=== PATIENT | female | born 1995 | race Caucasian/White ===

== ENCOUNTER 2023-05-19 16:40 | Outpatient (CLI) | payer BC, SELFPAY ==
--- NOTE | 2023-05-19 17:00 | CRLHL7_ITS ---
For Patients: As a result of the Cures Act, medical imaging exams and procedure reports are released immediately into your electronic medical record. You may view this report before your referring provider. If you have questions, please contact your health care provider. INDICATION: First trimester scan, establish dates. COMPARISON: None. TECHNIQUE: Real-time herring-scale imaging of the pelvis was performed. FINDINGS: Sonographic imaging demonstrates a single living intrauterine gestation. The embryo demonstrates a regular cardiac rate measuring 176 beats per minute. The embryo`s crown-rump length measurement of 2.0 cm corresponds to a gestational age of 8 weeks 4 days with a sonographic due date of 12/25/2023. There is a normal-appearing yolk sac. There are no gross abnormalities noted within the embryo at this early state of development. The gestational sac has a normal appearance. There is no evidence of a perigestational hemorrhage. The amount of fluid within the sac appears appropriate for gestational age. The cervix is closed. The myometrium appears normal. The ovaries are of normal size. Corpus luteal cyst right ovary. Trace pelvic free fluid. IMPRESSION: Normal first trimester OB ultrasound exam. Gestational age calculated at 8 weeks 4 days with a sonographic due date of 12/25/2023. Dictated by Esteban Leiva MD @ 05/22/2023 5:56:11 AM (Electronically Signed)
== END 2023-05-19 16:41 | disposition home or self-care (01) ==
LOC: US 16:41
PROVIDERS: Visit Provider Physician Assistant
DX: Z34.91 Encounter for supervision of normal pregnancy, unspecified, first trimester (principal); Z3A.08 8 weeks gestation of pregnancy
CPT/HCPCS: 76817; 86592; 86703; 86704; 86706; 86762; 86787; 86803; 86850; 86900; 86901; 87086; 87340; 87491; 87591

== ENCOUNTER 2023-08-07 12:35 | Outpatient (CLI) | payer BC, SELFPAY ==
--- NOTE | 2023-08-07 13:00 | CRLHL7_ITS ---
For Patients: As a result of the Century Cures Act, medical imaging exams and procedure reports are released immediately into your electronic medical record. You may view this report before your referring provider. If you have questions, please contact your health care provider. INDICATION: Evaluate anatomy. COMPARISON: May 19, 2023 TECHNIQUE: Real time herring scale imaging of the fetus was performed. FINDINGS: Sonographic imaging demonstrates a single living intrauterine gestation. Fetus demonstrates a regular cardiac rate of 141 beats per minute. Fetus has a vertex orientation and longitudinal lie. The placenta lies posteriorly without evidence of placenta previa. Amniotic fluid volume appears normal. Single deepest vertical pocket: 3.1 cm. The cervix is closed and measures 4.2 cm in length. The composite ultrasound gestational age is calculated at 20 weeks 0 days with an estimated sonographic due date of December 25, 2023. The estimated weight is 316 grams which lies at the 44th percentile. The following biometric measurements were obtained: Biparietal diameter: 4.5 cm/19 weeks 5 days 44% Head circumference: 17.7 cm/20 weeks 1 day 57% Abdominal circumference: 14.7 cm/20 weeks 0 days 50% Femur length: 3.1 cm/19 weeks 4 days 32% The HC/AC ratio measures: 1.2 range (1.08-1.25) On anatomic survey, there is a normal appearance of the cerebral ventricles, cisterna magna and cerebellum. The nose, lips, and facial profile appear normal. The cervical, thoracic and lumbar spine are well visualized and appear normal. There is a normal four-chamber heart view and the left and right ventricular outflow tracts appear normal. diaphragm, stomach, kidneys and bladder appear normal. Please note however there appears to be a 5 mm cyst arising from the posterior right kidney and a 7 mm cyst arising from the medial left kidney. These are not convincingly part of the renal pelvis. If these are truly simple renal cysts, typically they resolved during the course of . Consider a short interval follow-up ultrasound with attention directed the kidneys within 4-6 weeks. There is a normal three-vessel cord and cord insertion site. The four extremities appear normal. IMPRESSION: Normal OB ultrasound exam with concordance of clinical and sonographic dating. No intrinsic abnormalities noted on anatomic survey. Please note however there appear to be bilateral renal cysts, 5 millimeters on the right and 7 millimeters on the left. Typically these resolved during the course of the . Consider follow-up ultrasound of the kidneys in 4-6 weeks. Dictated by Romaine Fairbanks MD @ 08/10/2023 9:58:35 AM (Electronically Signed)
== END 2023-08-07 12:36 | disposition home or self-care (01) ==
LOC: US 12:36
PROVIDERS: Visit Provider Obstetrics & Gynecology
DX: Z34.92 Encounter for supervision of normal pregnancy, unspecified, second trimester (principal); Z3A.19 19 weeks gestation of pregnancy
CPT/HCPCS: 76805

== ENCOUNTER 2023-10-02 13:10 | Outpatient (CLI) | payer BC, SELFPAY | END 2023-10-02 13:11 | disposition home or self-care (01) | LOC: NFLDREF 10-05 05:45 | PROVIDERS: Visit Provider Obstetrics & Gynecology | DX: Z34.93 Encounter for supervision of normal pregnancy, unspecified, third trimester (principal) | CPT/HCPCS: 86592 ==

== ENCOUNTER 2023-12-02 14:14 | Outpatient (CLI) | payer BC, SELFPAY ==
[2023-12-03 15:15] LABS: Strep B DNA Probe POSITIVE (Negative)
[2023-12-03 18:02] LABS: Strep B Susceptibility Needed? No
== END 2023-12-02 14:15 | disposition home or self-care (01) ==
LOC: NFLDREF 14:16
PROVIDERS: PCP Advanced Practice Midwife; Visit Provider Advanced Practice Midwife
DX: Z34.03 Encounter for supervision of normal first pregnancy, third trimester (principal)
CPT/HCPCS: 87081; 87653

== ENCOUNTER 2023-12-19 09:01 | Inpatient (IN) | payer BC, SELFPAY ==
[2023-12-19] VITALS (95 sets, daily range): BP systolic 83–129; BP diastolic 43–83; PULSE 56–109; RESP 16–18; TEMP 36.7–37.1; O2SAT 86–100; BMI 29.5
[2023-12-19] MEDS: LACTATED RINGERS 1000 ML 1,000 ML 1200 ML IV ×3 (09:12→16:12)
[2023-12-19 09:21] LABS: Basophils Percent Auto 0.2 % (0.0-3.0); Eosinophils Percent Auto 0.3 % (0.0-7.0); Hematocrit 39.1 % (33.0-51.0); Hemoglobin* 13.3 gm/dL (12.0-16.0); Immature Granulocytes Pct Auto 0.3 %; Lymphocytes Percent Auto 7.8 % (20-44); Mean Corpuscular HGB Conc 34 gm/dL (32-36); Mean Corpuscular Hemoglobin 31 pg (26-34); Mean Corpuscular Volume 92 fL (80-100); Monocytes Percent Auto 3.8 % (0.0-11.0); Neutrophils Percent Auto 87.6 % (42.0-72.0); Platelet Count* 198 K/uL (140-440); RDW Coefficient of Variation % 13.1 % (11.5-15.5); Red Blood Count 4.25 m/uL (4.00-5.20); White Blood Count* 11.88 K/uL (4.50-11.00)
[2023-12-19 09:23] LABS: Slide Review Reflex No
[2023-12-19] MEDS: AMPICILLIN 2 GM in 0.9 % SODIUM CHLORIDE Mini-bag 100 ML IVPB (09:30)
--- NOTE | 2023-12-19 09:46 | P.OBHP_ITS ---
OB - H&P: HPI Labor/Induction History of Present Illness Time Seen by Provider: 09:00 Date Seen: 12/19/23 Chief Complaint: The patient is a 28 year old gravida1 para 0 at 39.0 weeks gestation by LMP, who presents with contractions and blood show. Her whole H&P was dictated by Dr. Benoit on 12/18/23. Active movement. Denies LOF or abnormal vaginal discharge. Ctx 3-5 minutes. Small amount of vaginal bleeding from cervical change. Patient presented to triage for labor rule out due to ongoing contractions. She went from 4 cm to 6 cm and will be admitted for spontaneous labor. Chief complaint: Maternity Narrative: Cass Arambula is a 28 year old female Specific Issues/Plans 1. Migraines 2. History of frequent UTIs 3. ?Report of transient black stools - recommend fecal occult blood test to rule out melena if recurs, patient to call into clinic to coordinate this if present 4. Bilateral renal cysts noted on anatomy US --> Left Multicystic Kidney Disease - NIPT low risk - s/p MFM referral. Recommend serial growth US with reassessment of kidneys at each US - ongoing at [facility]. - Growth 09/21: EFW 972g, 56%ile. SDP 6.2cm. - Growth 10/25: EFW 1784g, 46%ile. SDP 5.4cm. Stable left multicystic dysplastic kidney, unremarkable right kidney. - Growth 11/26: EFW 2941g, 66%ile. AC 86%ile. SDP 6.5cm. Stable L MCDK, normal R. [x] s/p nephrology consult - repeat assessment via US at 4-6 weeks of life 5. Covid Positive in 21.3 wks (08/16/23) 6. GBS positive. Needs antibiotics in labor. Flu shot: Declined COVID shot: Declined Tdap: 10/16/23 Meds Home Medications and Allergies Home Medications ?Medication ?Instructions ?Recorded ?Confirmed ?Type skin cleanser,general (Cetaphil 1 applic topical BID 05/19/23 12/19/23 History topical cleanser) vitamin#30 30 mg iron-10 1 cap PO DAILY 06/15/23 12/19/23 History mg iron-folic acid 1 mg-omg3 capsule Allergies Allergy/AdvReac Type Severity Reaction Status Date / Time No Known Drug Allergies Allergy Verified 12/18/23 11:36 OB - H&P: Exam Physical Exam: Vital signs: Temp Pulse Resp BP Pulse Ox 98.7 F 75 18 129/82 98 12/19/23 09:24 12/19/23 09:15 12/19/23 09:24 12/19/23 09:15 12/19/23 05:31 Narrative: Physical exam: General: No acute distress Psych: Alert and oriented x3, full affect HEENT: Normocephalic, atraumatic Lungs: Unlabored breathing Neuro: No focal deficit. Mentating appropriately Pelvic exam: /-1 per RN check OB - Results Labs Labs: Short CBC 12/19/23 Range/Units 09:12 WBC 11.88 H (4.50-11.00) K/uL Hgb 13.3 (12.0-16.0) gm/dL Hct 39.1 (33.0-51.0) % Plt Count 198 (140-440) K/uL OB - Problem Based A/P Additional Plan (1) renal anomaly, single gestation: Status: Acute Plan: - s/p nephrology consult - repeat assessment via US at 4-6 weeks of life (2) Spontaneous onset of labor: Status: Acute Plan: - Patient requesting epidural - Expectant management for now
[2023-12-19] MEDS: ROPIVACAINE 0.2% 100 ml 100 ML 10 MG EPIDURAL (10:35)
[2023-12-19] MEDS: LIDOCAINE 2% (PF) 5 ML VIAL EPIDURAL (10:35)
--- NOTE | 2023-12-19 10:41 | P.ANBPRC_ITS ---
[facility] Surgical History History of wisdom tooth extraction ?K08.409 - Partial loss of teeth, unspecified cause, unspecified class (ICD- 10) History of tonsillectomy and adenoidectomy ?Z90.89 - Acquired absence of other organs (ICD-10) Family History Maternal Grandfather Coronary artery disease Social History Narrative: History of blood transfusion: No. SOCIAL HISTORY: Occupation: Teacher. Marital status: . Oriental Orthodox/cultural needs: no. Chemical or radiation exposure: no. Pre- tobacco use: no. Pre- alcohol use: no. Current tobacco use: no. Current alcohol use: Occasionally on holidays. Recreational drug use: no. Dietary restrictions: no. Blood transfusion acceptable in an emergency: yes. PSYCHOSOCIAL HISTORY: History of depression or currently depressed: no. Current or past physical, emotional, or sexual mistreatment: no. Problems that will make it hard to make it to appointments: no. What is your current living situation?: I presently have a place to live Problems where you live: no known problems In the past 12 months, utilities in danger of being shut off: no In past 12 months, lack of transportation kept you from medical appts, meetings, work, or getting things needed for daily living: no In the past 12 mos, have been you worried that your food would run out before you had money to buy more?: never true In the past 12 mos, the food you bought just didn't last and you didn't have money to buy more?: never true Smoking Status: Never smoker How often does anyone, including family, friends and others, physically hurt you : never How often does anyone, including family, friends and others, insult or talk down to you: never How often does anyone, including family, friends and others, threaten you with harm: never How often does anyone, including family, friends and others, scream or curse at you: never Little interest or pleasure in doing things: not at all Feeling down, depressed, or hopeless: not at all Meds Home Medications and Allergies Home Medications ?Medication ?Instructions ?Recorded ?Confirmed ?Type skin cleanser,general (Cetaphil 1 applic topical BID 05/19/23 12/19/23 History topical cleanser) vitamin#30 30 mg iron-10 1 cap PO DAILY 06/15/23 12/19/23 History mg iron-folic acid 1 mg-omg3 capsule Allergies Allergy/AdvReac Type Severity Reaction Status Date / Time No Known Drug Allergies Allergy Verified 12/18/23 11:36 Results Labs Labs: Laboratory Results - last 24 hr 12/19/23 09:12 WBC 11.88 H RBC 4.25 Hgb 13.3 Hct 39.1 MCV 92 MCH 31 MCHC 34 RDW Coeff of Abril 13.1 Plt Count 198 Neut % (Auto) 87.6 H Lymph % (Auto) 7.8 L Pershing % (Auto) 3.8 Eos % (Auto) 0.3 Baso % (Auto) 0.2 Neut # (Auto) 10.40 H Lymph # (Auto) 0.90 Pershing # (Auto) 0.50 Eos # (Auto) 0.00 Baso # (Auto) 0.00 Abs Immat Gran (auto) 0.00 Imm/Tot Granulo (auto) 0.3 Blood Type A Positive Antibody Screen NEGATIVE Vital Signs Vital Signs: Last Vital Signs Temp 98.7 F 12/19/23 10:39 Pulse 93 12/19/23 10:39 Resp 16 12/19/23 10:39 BP 107/60 12/19/23 10:39 Pulse Ox 98 12/19/23 10:40 Weight: 70.76 kg Height: 154.94 cm Anesthesia Procedures Epidural Insertion Patient Location: OB Start Time: 10:10 Stop Time: 10:50 Start Date: 12/19/23 Stop Date: 12/19/23 Reason for Block: primary anesthetic Patient Position: sitting Performed By: Kaushik Spencer Preanesthetic Checklist: IV checked, risks and benefits discussed, surgical consent, monitors and equipment checked, pre-op evaluation, timeout performed and anesthesia consent Prep: chlorhexidine gluconate Monitoring: blood pressure monitoring, monitoring and evaluation advisor, continuous pulse oximetry and heart rate Approach: midline Vertebral Space: lumbar (1-5) Needle Type: Tuohy needle Injection Technique: continuous catheter (catheter) Needle gauge: 17 Needle Length (cm): 10 cm Needle Insertion Depth (cm): 5 Catheter Gauge: 19 Catheter Type: multi-orifice Catheter at skin depth (cm): 10 Test Dose Result: negative and lidocaine 1.5% with epinephrine 1 to 200,000
[2023-12-19] MEDS: AMPICILLIN 1 GM in 0.9 % SODIUM CHLORIDE Mini-bag 100 ML IVPB (14:00)
--- NOTE | 2023-12-19 14:02 | PM.OBPNL ---
Subjective Time Seen by Provider: 12:30 Date Seen: 12/19/23 Objective Vital Signs: Last Vital Signs Temp 98.2 F 12/19/23 12:22 Pulse 75 12/19/23 13:58 Resp 16 12/19/23 12:22 BP 93/52 L 12/19/23 13:58 Pulse Ox 98 12/19/23 11:30 Pelvic Exam Dilation (cm): 6.5 Effacement (%): 80 Station: -1 Comments: Increased blood show, mucous mixed with some blood. No brisk bleeding. Appropriate for AROM. AROM at 1230, clear fluid. No complication. Patient tolerated the procedure well. Contractions Monitor mode: External Contraction Frequency: Q5 Contraction pattern: Irregular Contraction intensity: Moderate Plan Plan: - Will start pitocin if no change after AROM or decrease frequency in contractions.
[2023-12-19] MEDS: OXYTOCIN 30 unit/500 ML in NS 30 UNIT/500 ML BAG IVPB (14:16)
[2023-12-19 16:10] LABS: INR 0.87 (0.91-1.10); Partial Thromboplastin Time* 24 Seconds (23-33); Prothrombin Time 12.4 Seconds
[2023-12-19 16:11] LABS: Fibrinogen* 488 mg/dL (200-450)
--- NOTE | 2023-12-19 16:23 | P.OBPN_ITS ---
Subjective Time Seen by Provider: 16:23 Date Seen: 12/19/23 Narrative: Informed by RN that she is having more bleeding and worsening deceleration. I presented to bedside for assessment. Patient is having more dark red blood mixed with cervical mucous, appears distinct from amniotic fluid which is a clear yellow that slowly leaks during contraction. Cervical exam notable for what palpable like a cervical polyp right side. It's contiguous with the cervical tissue and distinct from skull. Increased bleeding noted on fingers with palpation of the polyp. Fetus with good scalp stimulation. Cervical exam was unchanged. Internals placed without issues. Discussed concern for arrest of dilation. Will continue to titrate Pitocin given that fetus has good scalp stim and moderate variability. Decelerations have improved with repositioning and IV bolus. Bleeding is not bright red or brisk, continues to be mucous mixed. BSUS showed fetus well engaged in the pelvis without concern for near by umbilical cord. Placenta looks intact. Hgb/plt today: 13.3/198 Coags pending Patient understands that I will recommend a delivery if no cervical change in 1-2 hours, worsening deceleration or worsening bleeding. All questions answered. Will close monitor. Objective Vital Signs: Last Vital Signs Temp 98.1 F 12/19/23 15:12 Pulse 71 12/19/23 16:09 Resp 16 12/19/23 15:12 BP 87/51 L 12/19/23 16:09 Pulse Ox 98 12/19/23 11:30 Pelvic Exam Dilation (cm): 6.5 Effacement (%): 80 Station: -1 Contractions Monitor mode: Internal Contraction Frequency: Q3-4 minutes Contraction pattern: Irregular Contraction intensity: Moderate Pitocin Rate (mU/min): 3 Assessment Status: Category ll Heart Rate Baseline: 140 Fingernail Sculptor Variability: Moderate (6-25) Monitor Accelerations: Present Monitor Decelerations: Variable
[2023-12-19] MEDS: AZITHROMYCIN 500 MG in 0.9 % SODIUM CHLORIDE 250 ml 250 ML 255 MG IVPB (17:25)
--- NOTE | 2023-12-19 17:33 | PM.OBPNL ---
Subjective Time Seen by Provider: 17:33 Date Seen: 12/19/23 Narrative: Patient unchanged on cervical exam. She continues to have variables that resolves after contractions. Moderate variability with accelerations in between contractions. Vaginal bleeding is stable. We discussed delivery for arrest of dilation in the active phase. CS Consent The patient was consented for section and blood. She understands that the four main categories of risk include pain, bleeding, infection, and damage to surrounding structures. Pain will be managed with her epidural during surgery. TAP block and PO pain medication will be utilized . Regarding infection, she understands that we will be delivering appropriate antibiotics, however that the risk of infection following section still is approximately 5%. She understands that though the risk is very low that there is always a risk of damage to the bladder, uterus, ovaries, fallopian tubes, bowels, ureters, or even the fetus. She understands that most injuries can be addressed at the time of surgery, however, such an injury may require additional surgeries to fix. She has never had any abdominal surgeries. Lastly, she understands that a section carries a risk of bleeding, and that while this bleeding can be addressed with multiple medical and surgical modalities (including hysterectomy), that there is the possibility of needing a blood transfusion. She reports she would accept a blood transfusion understanding the risks of a 1/200,000 risk of Hepatitis and 1/2,000,000 risk of HIV as well as the risk of having an allergic reaction to the blood products. She further understands that this reaction is typically mild, however can be severe including respiratory distress and necessitating ICU-level care. Lastly, she understands that a section does increase risks for future pregnancies and deliveries including, but not limited to, the risk of uterine rupture or placenta accreta. They plan to have 2 children at most. We discussed post operative recovery course. Objective Vital Signs: Last Vital Signs Temp 98.7 F 12/19/23 17:02 Pulse 92 12/19/23 17: Resp 16 12/19/23 17:02 BP 101/52 L 12/19/23 17:24 Pulse Ox 98 12/19/23 11:30 Pelvic Exam Dilation (cm): 6.5 Effacement (%): 80 Station: -1 Contractions Monitor mode: Internal Contraction pattern: Irregular Contraction intensity: Moderate Pitocin Rate (mU/min): 3 Assessment Status: Category ll Heart Rate Baseline: 140 Monitor Accelerations: Present Monitor Decelerations: Variable Plan Plan: - Hgb/plt: 13.3/198 - INR 0.87 (L) - APTT 24 - Fibrinogen 488 - Plan: Will proceed with primary delivery due to arrest of dilation in the active phase. OR team notified.
[2023-12-19] MEDS: CEFAZOLIN 2 GM INJ IVP (18:10)
[2023-12-19] MEDS: TRANEXAMIC ACID 100 MG/ML INJ 1000 MG IV (18:40)
[2023-12-19] MEDS: LACTATED RINGERS 1000 ML 1,000 ML 125 ML IV (18:44)
--- NOTE | 2023-12-19 19:27 | P.OBPRC_ITS ---
Procedure Time Seen by Provider: 19:28 Date of procedure: 12/19/23 Will [facility] bill your pro fee for this procedure?: Yes Procedure Description: DELIVERY BY SECTION Date of Service: 12/19/23 Delivery time: 1823 Summary: Admitted for spontaneous labor at 39.0 weeks, Primary Lower uterine transverse section, Pfannenstiel, Closed with sutures, QBL 447 cc, No complications, Findings: Normal uterus, bilateral ovaries. Normal left fallopian tube. Right fallopian tube with a small 1cm paratubal cyst. 8/9 Weight: 7lb 6oz Primary Indication: 1. Arrest of dilation in the active phase 2. Category II tracing with recurrent variables Procedures: Primary Lower uterine transverse section Specimens Removed: Placenta Surgeon: Swapna Shine MD Anesthesia: Epidural and TAP block Report: Prophylactic antibiotic, 2 g of Ancef and 500 mg of Azithromycin as given before patient was taken to OR. After arrival to the operating room patient was placed in the supine position with left lateral tilt after bolus of epidural anesthesia. Laparotomy A pfannenstiel incision was made through the anterior abdominal wall with #10 scalpel approximately 2 cm above the pubic symphysis. The incision was extended sharply with the #10 scalpel through the subcutaneous tissue to the level of fascia. The fascia was entered sharply with a #10 scalpel (Pfannenstiel) in the midline and extended in semi-elliptical fashion with digits. The rectus muscles were in the midline bluntly with digits. The peritoneum was then entered bluntly. The peritoneal incision was then extended superiorly and inferiorly under direct visualization with care being taken to avoid bladder and bowel. No adhesions were noted. The peritoneal incision was enlarged bluntly by lateral traction from the surgeon's and hair assistant's hand. Clifford retractor was inserted into the abdomen. Delivery A bladder flap was not made as bladder was low off the lower uterine segment. A low transverse hysterotomy was made then with #10 scalpel and extended laterally and cephalad with fingers in a low transverse fashion with Manu Hurd technique with care being taken to avoid injury to the fetus. The amniotic cavity (membrane) was then entered with spontaneous rupture of membrane, and the amniotic fluid was noted to be clear, fetus was delivered cephalic. With delivery of the baby, no extension was noted. Placenta was delivered spontaneously with steady traction on cord and manual separation of placenta from uterine wall. Closure Uterine cavity was cleaned after placental delivery with lap sponge x 3. The hysterotomy was closed in two layers with stitches using 0 vicryl with continuous locking stitches and 0 monocryl in a continuous non locking manner. Hemostasis was achieved with two additional figure of 8, one at midline and one at left uterine angle and as needed with electrocautery. 2 cm nondemanding hematoma noted on lower uterine segment at left uterine angle. The ovaries/tubes/uterine surface were evaluated. They were found to be normal. Clifford retractor removed and hemostasis was confirmed again. Fascia was closed with running stitches using 0 vicryl. Subcutaneous layer was irrigated. Hemostasis was checked for and found to be adequate. A small figure of 8 was placed in the subcutaneous tissue at midline due to a bleeding vessel. The subcutaneous layer was closed with running 2-0 chromic sutures. The skin was closed with 4-0 vicryl subcuticular sutures . The incision was cleaned, exofin applied and mepilex dressing placed. The procedure was considered terminate at this time. Intraoperative Complications: None QBL: 447 cc Uterotonics: 40u of pitocin and 1g of TXA Disposition: The patient tolerated the procedure well. She was recovered in Obstetric PACU for close monitoring in stable condition, with a contracted uterus and normal transvaginal bleeding. The infant was sent to mother?s bedside/PACU. The placenta was sent to pathology for nonreassuring heart tracing and unscheduled delivery. Debrief with OR team performed and specimen reviewed at the conclusion of the procedure.
--- NOTE | 2023-12-19 19:42 | P.NB_ITS ---
Nerve Block Nerve Block Time Seen by Provider: 19:25 Date Seen: 12/19/23 Type of block requested by surgeon for post-operative analgesia: TAP Side: bilateral Time out performed: Yes Verification of patient name: Yes Verification of date of : Yes Site marking: site marked Name of person performing procedure: Robert Lugo Continuous monitoring Was continuous monitoring of O2 sat, B/P, registered nurse cardiac, recorded every 15 minutes?: Yes Procedure Checklist: sterile prep, needles and gloves Ultrasound guided. Images saved: Yes Medications given in 5ml increments after negative aspiration: Marcaine %: 0.25 mL: 30 Needle gauge: 20 and Exparel mL: 10 Needle gauge: 20 Patient tolerated procedure well: Yes Additional comments: Injected in 5ml increments after negative aspiration Block Charges Block Charge (with Pro Fee): TAP Bilateral Use of Ultrasound Machine for Block: Yes- US Guidance/pain block
--- NOTE | 2023-12-19 19:42 | W.ANESCHARGE ---
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
[2023-12-19] MEDS: KETOROLAC 30 MG/ML inj IVP (20:42)
[2023-12-20] VITALS (22 sets, daily range): BP systolic 105–112; BP diastolic 64–72; PULSE 62–79; RESP 16–20; TEMP 36.6–36.8; O2SAT 96–97
[2023-12-20] MEDS: LACTATED RINGERS 1000 ML 1,000 ML 125 ML IV (00:16)
[2023-12-20] MEDS: KETOROLAC 30 MG/ML inj IVP (03:04)
[2023-12-20 07:09] LABS: Hemoglobin* 10.1 gm/dL (12.0-16.0)
[2023-12-20] MEDS: IBUPROFEN 600 MG TABLET PO ×3 (08:44→21:56)
[2023-12-20] MEDS: DOCUSATE SODIUM 100 MG CAPSULE PO (08:44)
--- NOTE | 2023-12-20 11:33 | PM.OBPNVD1 ---
OB - PN:Subj Subjective Time Seen by Provider: 11:34 Date Seen: 12/20/23 Narrative: Overnight patient had no complaints. Her pain is well controlled on oral pain medications - soreness at incision site. She is tolerating a regular diet. She has passed flatus. She is ambulating without difficulty. Lochia is scant. She is urinating without gonsales. Patient denies chest pain, SOB, n/v, headache, RUQ pain, vision changes, dizziness. OB - PN: Obj Exam Physical Exam: Vital signs: Temp Pulse Resp BP Pulse Ox O2 Del Method 98 F 78 16 112/72 96 Room Air 12/20/23 08:18 12/20/23 08:18 12/20/23 08:36 12/20/23 08:18 12/20/23 08:18 12/19/23 20:08 Narrative: Physical exam: General: No acute distress Psych: Alert and oriented x4, full affect HEENT: Normocephalic, atraumatic Neck: No cervical adenopathy, no thyromegaly Heart: Regular rate and rhythm, no murmur rub or gallop Lungs: Clear to auscultation bilaterally Abdomen: Normoactive bowel sounds, soft, no tenderness, rebound, or guarding. Uterus firm 2cm below umbilicus. Incision: Dressing clean, dry, and intact. Appropriately tender to palpation. Skin: No lesions or rashes Lower extremities: No edema or erythema Pelvic exam: Scant bleeding on pad OB - PN: Obj Data Labs Labs: Laboratory Results - last 24 hr 12/19/23 12/20/23 15:50 07:00 Hgb 10.1 L INR 0.87 L APTT 24 Fibrinogen 488 H OB - PN: A/P Delivery Assessment and Plan (1) renal anomaly, single gestation: Status: Acute (2) Status post delivery: Status: Acute (3) Acute blood loss anemia: Status: Acute Plan Postoperative/post delivery Review: - Admitted for: Spontaneous labor - Surgical procedure: Primary delivery for arrest of dilation in the active phase - Skin incision: Pfannenstiel - Closure: sutures - Quantitative blood loss: 447 mL - Intraoperative Complications: none Acute blood loss anemia - Urine output: adequate. 1.65 cc/kg/hr - Preop/pre delivery Hgb: 13.3 - Postop/post delivery Hgb: 10.1 - PO iron Postoperative care: - Diet: Advance as tolerated - Fluid: Encourage oral intake - Activity: Encourage ambulation and incentive spirometry - Pain: Acetaminophen, Ibuprofen - DVT prophylaxis: SCDs and TEDs when not ambulating. Discharge Planning - Follow up in 5-7 days for incision check in clinic - Follow Up: follow-up at 2 weeks and 6 weeks in clinic Baby's Status - Fetus: 8, 9 - 3335 g, male - Location: Bedside Dispo: Patient is POD#1. Need the following milestones: not yet 24 hours. Anticipate discharge POD#2. Plan day: 1 Plan: routine care
[2023-12-20] MEDS: FERROUS SULFATE 325 MG TABLET PO (12:34)
[2023-12-20] MEDS: ACETAMINOPHEN 500 MG TABLET 1000 MG PO (12:52)
[2023-12-20 17:01] LABS: Rapid Plasma Reagin (RPR) Non Reactive (Non Reactive)
[2023-12-21] MEDS: ACETAMINOPHEN 500 MG TABLET 1000 MG PO ×2 (01:12→07:27)
[2023-12-21 01:41] VITALS: BP 125/79; PULSE 66; RESP 16; TEMP 36.6; O2SAT 97
--- NOTE | 2023-12-21 03:44 | PM.ANPOST ---
Post Anesthesia Note Post Anesthesia Note Patient seen: Inpatient Respiratory Status: adequate Cardiovascular Status: adequate Mental Status: baseline Pain: adequate Temp: baseline Anesthetic awareness: N/A Complications: none Follow care: none
[2023-12-21] MEDS: IBUPROFEN 600 MG TABLET PO ×2 (04:17→12:54)
[2023-12-21 09:00] VITALS: BP 113/75; PULSE 66; RESP 16; TEMP 37; O2SAT 98
--- NOTE | 2023-12-21 11:51 | PM.OBDSVD1 ---
DS: Providers Provider Time Seen by Provider: 11:51 Date Seen: 12/21/23 Date of admission: 12/19/23 09:01 Primary care physician: Not a Local Provider Admitting Clinician: Swapna Shine MD Attending Physician on discharge: Renetta Zuluaga MD Date of Discharge: 12/21/23 DS: Diagnosis Discharge Diagnosis (1) Acute blood loss anemia: Status: Acute (2) Status post delivery: Status: Acute (3) renal anomaly, single gestation: Status: Acute Exam Narrative: Exam Narrative: General: No acute distress Psych: Alert and oriented x4, full affect HEENT: Normocephalic, atraumatic Neck: No cervical adenopathy, no thyromegaly Heart: Regular rate and rhythm, no murmur rub or gallop Lungs: Clear to auscultation bilaterally Abdomen: Normoactive bowel sounds, soft, no tenderness, rebound, or guarding. Uterus firm 2cm below umbilicus. INCISION: Clean, dry and intact without tenderness, erythema, induration, or drainage. Skin: No lesions or rashes Lower extremities: No edema or erythema Pelvic exam: Scant bleeding on pad Const: Vital Signs, click to edit/add: Vital Signs - 24 hr 12/20/23 12:35 12/20/23 12:41 12/20/23 14:26 Temperature 98.2 F Pulse Rate [Blood Pressure Cuff] 73 Respiratory Rate 16 16 16 Blood Pressure [Le ft Arm] 106/68 Pulse Oximetry 97 Oxygen Delivery Me thod Room Air 12/20/23 14:41 12/20/23 15:41 12/20/23 16:41 Temperature Pulse Rate [Blood Pressure Cuff] Respiratory Rate 20 16 20 Blood Pressure [Le ft Arm] Pulse Oximetry Oxygen Delivery Me thod 12/20/23 17:41 12/20/23 17:46 12/21/23 01:41 Temperature 97.9 F 98 F Pulse Rate [Blood Pressure Cuff] 62 66 Respiratory Rate 16 16 16 Blood Pressure [Le ft Arm] 107/64 125/79 Pulse Oximetry 97 97 Oxygen Delivery Me thod Room Air Room Air OB - DS: Summary Hospital Course Hospital Course: The patient is a 28 year old at 39.0 weeks gestation that was admitted to the Center on 12/19/23 for spontaneous labor. She had an uncomplicated delivery due to arrest of dilation in the active phase. She delivered a viable male infant. She is . the patient has done well. Overnight patient had no complaints. Her pain is well controlled on oral pain medications. She is tolerating a regular diet. She has passed flatus. She is ambulating without difficulty. Lochia is scant. She is urinating without gonsales. Patient denies chest pain, SOB, n/v, headache, RUQ pain, vision changes, dizziness. 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 Postoperative/post delivery Review: - Admitted for: Spontaneous labor - Surgical procedure: Primary delivery for arrest of dilation in the active phase - Skin incision: Pfannenstiel - Closure: sutures - Quantitative blood loss: 447 mL - Intraoperative Complications: none Acute blood loss anemia - Urine output: adequate. 1.65 cc/kg/hr - Preop/pre delivery Hgb: 13.3 - Postop/post delivery Hgb: 10.1 - PO iron Postoperative care: - Diet: Advance as tolerated - Fluid: Encourage oral intake - Activity: Encourage ambulation and incentive spirometry - Pain: Acetaminophen, Ibuprofen - DVT prophylaxis: SCDs and TEDs when not ambulating. Discharge Planning - Follow Up: follow-up at 2 weeks and 6 weeks in clinic Baby's Status - Fetus: 8, 9 - 3335 g, male - Location: Bedside Dispo: Patient is POD#2. Stable and appropriate for discharge. Time spent discussing smoking cessation with patient: 3 to 10 minutes Peripartum Data Procedures: Procedures Operation Date: 12/19/23 18:30 Actual Procedure Side Surgeon p Primary Delivery Swapna Shine MD Infant Gender: Male Time Spent with Patient Time attestation: Total time spent providing and/or coordinating discharge services: Time spent: Less than 30 minutes Discharge Plan Discharge Disposition: Home, Self-Care Date of Admission: 12/19/23 09:01 Attending Provider on Discharge: Swapna Shine Primary Care Provider: Provider,Not a Local Condition: Stable Anticipated Discharge Date/Time: 12/21/23 11:43 Discharge Medications: New acetaminophen 500 mg Tablet 1,000 mg PO Q6H PRN (Reason: pain/fever) 30 Days Qty: 60 0RF docusate sodium 100 mg Capsule 100 mg PO DAILY 30 Days Qty: 30 0RF ferrous sulfate 325 mg (65 mg iron) Tablet 325 mg PO Q48H 30 Days Qty: 15 0RF ibuprofen 600 mg Tablet 600 mg PO Q6H PRN (Reason: Pain) 30 Days Qty: 60 0RF Lanolin (HPA) 100 % Cream 1 applic topical Q1H PRN60 Days Qty: 21 0RF simethicone 80 mg Tablet,Chewable 80 - 160 mg PO Q4H PRN (Reason: Gas) Qty: 60 0RF oxycodone 5 mg Tablet 5 mg PO Q6H PRN (Reason: Pain) 14 Days Qty: 20 0RF polyethylene glycol 3350 [Miralax] 17 gram powder in packet 17 g PO DAILY Qty: 100 0RF Continued Cetaphil Cleanser 1 applic topical BID PNV #[id number] 30 mg iron-10 mg iron-1 mg capsule 1 cap PO DAILY Discharge Orders: Discharge Order (Routine); Ordered 12/21/23 Ordered By: Swapna Shine Patient Education: (DC) Follow Up Appointments: Provider,Not a Local [Primary Care Provider] - Forms: [facility] Info Instructions Discharge Comments: POSTOPERATIVE INSTRUCTIONS ACTIVITY No heavy lifting/pushing/pulling for 6 weeks. Do not lift anything more than about 15 lbs (such as laundry, groceries, children, pets), vacuum, push heavy doors or grocery carts, etc. You may climb stairs as tolerated. Do not put anything in the vagina for 6 weeks after surgery unless otherwise instructed by your doctor (including tampons, douching, sexual intercourse, etc). No driving for about 2 weeks after surgery, while you are taking narcotic pain medication, or until you feel that you are ready. Practice checking your blind spot and stepping hard on the brake. Avoid sitting or lying in bed for more than 2 hours at a time while you are awake to reduce your risk of blood clots. You may return to work when directed by your physician. Please contact your doctor if you need any return to work letters or medical leave paperwork to be completed. WOUND CARE You will have one large incision on your abdomen. There will be dissolvable stitches under your skin that do not need to be removed. You will also have surgical glue on the incisions and these may be removed like a Band-Aid when they curl up at the edges. Shower daily after surgery. Clean your incision with mild antibacterial soap and water. Pat your incision dry with a clean towel. No tub baths until wound is completely healed. Wash your hands frequently, especially before touching your incision, changing any dressings, after using the restroom, and before eating. PAIN MANAGEMENT Take your oral pain medication as needed. You should be taking Ibuprofen 600mg every 6 hours with 1 gram of Tylenol every 6 hours. You can take these together every six hours or alternate them every 3 hours. You should then take the oxycodone as needed if you have breakthrough pain on top of the Tylenol and Ibuprofen. Some pain medications can cause constipation so you should take a stool softener (i.e. colace) while you are on these medications. You may also take milk of magnesia or Miralax for constipation. WHAT TO EXPECT AT HOME Recovery from surgery is generally 4-6 weeks, but sometimes longer for more strenuous activity. It is normal to be very tired during this time. It is normal to have some drainage or a small amount of vaginal bleeding after surgery which may last up to 6 weeks. You will most likely experience gas pain, abdominal swelling, or shoulder pain for 24-72 hours after surgery. A warm shower, heating pad, and/or walking may help. WHEN TO CALL YOUR DOCTOR : Fever (>100.4?F or 38.0?C) or chills. Incision problems such as redness, warmth, swelling, or foul smelling drainage. Severe nausea or persistent vomiting. Bright red vaginal bleeding (soaking >1 pad/hour) or foul smelling vaginal drainage. Severe pain not relieved with pain medication. Pain and swelling in your legs, especially if it is only on one side and not the other. Pain with urination, cloudy urine, or foul smelling urine. Or if you have any other problems or questions. CALL 911 OR GO TO THE EMERGENCY ROOM IF YOU HAVE: Any shortness of breath, difficulty breathing, or chest pain.
[2023-12-21] MEDS: DOCUSATE SODIUM 100 MG CAPSULE PO (12:54)
== END 2023-12-21 13:07 | disposition home or self-care (01) | DRG 540 ==
LOC: OB OUT 09:01 → OB 09:01
PROVIDERS: Admitting Provider Obstetrics & Gynecology; Visit Provider Obstetrics & Gynecology
PROC: 10D00Z1 Extraction of Products of Conception, Low, Open Approach (ICD-10-PCS; CPT 59514; principal; 2023-12-19 18:15)
DX: O35.EXX0 Maternal care for other (suspected) fetal abnormality and damage, fetal genitourinary anomalies, not applicable or unspecified (principal); O99.824 Streptococcus B carrier state complicating childbirth; O62.0 Primary inadequate contractions; O76 Abnormality in fetal heart rate and rhythm complicating labor and delivery; G89.18 Other acute postprocedural pain; O90.81 Anemia of the puerperium; D62 Acute posthemorrhagic anemia; O34.43 Maternal care for other abnormalities of cervix, third trimester; N84.1 Polyp of cervix uteri; N83.8 Other noninflammatory disorders of ovary, fallopian tube and broad ligament; Z3A.39 39 weeks gestation of pregnancy; Z37.0 Single live birth
CPT/HCPCS: 01967; 01968; 36415; 64488; 76815; 76942; 85018; 85025; 85384; 85610; 85730; 86592; 86850; 86900; 86901; 88307; 99140; G0463; A9270; C9290; J0290; J0456; J0665; J0690; J1885; J2274; J2371; J2405; J2590; J2795; J3010; J7050; J7120

== ENCOUNTER 2025-06-11 08:38 | Outpatient (CLI) | payer BC, SELFPAY | END 2025-06-11 08:39 | disposition home or self-care (01) | LOC: NFLDREF 06-15 05:58 | DX: N30.01 Acute cystitis with hematuria (principal) | CPT/HCPCS: 87086 ==